=== PATIENT | male | born 1980 | race Hispanic/Latino ===

== ENCOUNTER 2019-10-12 07:29 | Inpatient (IN) | payer BC ==
[2019-10-12 08:08] LABS: Hemoglobin 17.5 g/dL (14.0-18.0); Mean Corpuscular HGB CONC 35.3 g/dL (32.0-36.0); Mean Corpuscular Hemoglobin 35.1 pg (27.0-31.0); Mean Corpuscular Volume 99.3 fL (78.0-98.0); Mean Platelet Volume 9.3 fL (7.4-10.4); Platelet Count 139 thou/uL (130-400); RBC Distribution Width 11.8 % (11.5-14.5); Red Blood Cell (RBC) Count 4.99 mill/uL (4.70-6.10); White Blood Cell (WBC) Count 15.1 thou/uL (4.8-10.8)
[2019-10-12 08:15] LABS: ALT (SGPT) 20 U/L (8-55); AST (SGOT) 15 U/L (5-34); Albumin 4.5 g/dL (3.5-5.0); Alkaline Phosphatase 145 U/L (40-110); BUN (Urea Nitrogen) 10 mg/dL (8.9-20.6); Bilirubin, Total 0.6 mg/dL (0.2-1.2); Calc. Creatinine Clearance 0 mL/min (70-130); Calcium 10.1 mg/dL (7.8-10.44); Chloride 102 mmol/L (98-107); Estimated GFR-MDRD 36; Globulin 4.6 g/dL (2.4-3.5); Glucose 440 mg/dL (70-105); Lipase 25 U/L (8-78); Potassium 4.6 mmol/L (3.5-5.1); Protein, Total 9.1 g/dL (6.0-8.3); Sodium 133 mmol/L (136-145)
[2019-10-12 08:18] LABS: Carbon Dioxide Less than 8 mmol/L (22-29)
[2019-10-12 08:24] LABS: Band 47 % (5-11); Lymphocytes 6 % (21-51); MDiff Complete? YES; Metamyelocyte 4 % (0-0); Monocytes 16 % (0-10); Myelocyte 1 % (0-0); Neutrophil 25 % (42-75); Platelet Morphology Comment Appears Adequate; RBC Morphology Normal; Reactive Lymphocytes 1 % (0-10); Reflex for Review?? YES; Vacuoles SLIGHT
--- NOTE | 2019-10-12 08:24 | RAD ---
XR Chest 1 View Portable HISTORY: Cough COMPARISON: None FINDINGS: The heart size is normal. The lungs are well expanded without focal areas of consolidation, pneumothorax or pleural effusions. IMPRESSION: No radiographic evidence of acute cardiopulmonary process.
[2019-10-12 09:10] LABS: Bacteria/HPF None Seen HPF (None Seen); Bilirubin Negative (Negative); Blood, Urine 2+ (Negative); Clarity Clear (Clear); Glucose, Urine (Dipstick) Greater than 1000 mg/dL (Negative); Leukocyte Negative Leu/uL (Negative); Nitrite Negative (Negative); Protein, Urine (Dipstick) 100 mg/dL (Neg-Trace); RBC/HPF 0-3 HPF (0-3); Squamous Epithelial 0-3 HPF (0-3); Urobilinogen Normal mg/dL (Less than 2); WBC/HPF 0-3 HPF (0-3)
[2019-10-12] MEDS ORDERED: Bisacodyl 10 MG SUPP PR PRN (09:44)
[2019-10-12] MEDS ORDERED: Ondansetron PF 4 MG/2 ML Vial IVP PRN (09:44)
[2019-10-12] MEDS ORDERED: CCU Electrolyte Replacement 1 EACH IVPB ONE (09:44)
[2019-10-12] MEDS ORDERED: Dextrose 5 %-0.45 % NaCl 1,000 ML IV PRN (09:44)
[2019-10-12] MEDS ORDERED: NS 0.9% w/ 20 MEQ KCL 1,000 ML IV PRN ×2 (09:44)
[2019-10-12] MEDS ORDERED: D5 1/2 NS w/20 mEq KCL 1,000 ML IV PRN (09:44)
[2019-10-12] MEDS ORDERED: Sodium Chloride 0.9% 1,000 ML IV PRN ×4 (09:44)
[2019-10-12] MEDS ORDERED: Senokot S 8.6-50 MG TAB PO PRN (09:44)
[2019-10-12] MEDS ORDERED: HUMULIN R 100 UNITS in Sodium Chloride 0.9% 100 ML IVPB SCH (10:19)
--- NOTE | 2019-10-12 10:56 | HP ---
REASON FOR ADMISSION: DKA, possible sepsis, influenza A. HISTORY OF PRESENTING ILLNESS: The patient gives history of not feeling well from last 2 days. He has been feeling very weak and developed abdominal discomfort which was generalized. He vomited once and had some small amount of blood in it. They had gone to walk-in [facility] yesterday and had a nasal smear for influenza done. They got the results this morning saying it was positive for influenza A. They have a prescription for Tamiflu. The patient and also mentions that they had been to [place] for the last [address] brother's place and he was not taking his metformin for 2 weeks. No complaints of cough or expectoration. No complaints of urinary burning, but has increased frequency of urination. On arrival, patient had a temperature of 94 and was placed on a Ida Hugger. His serum bicarb was less than 8. The patient has received a total of 2 L of fluid bolus in the ER. PAST MEDICAL AND SURGICAL HISTORY: Diabetes mellitus type 2. No prior surgical history. CURRENT MEDICATION: 1. Metformin 750 mg extended release daily. 2. Ozempic 0.25 mg once weekly shot for diabetes. ALLERGIES: NO KNOWN DRUG ALLERGIES. PERSONAL HISTORY: Drinks on the weekend, six cans a day. Does not abuse drugs. No smoking. 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 Lives with his . FAMILY HISTORY: Both parents are living. Father is healthy. Mother has history of diabetes. CODE STATUS: Full. Power of defense attorney is his . REVIEW OF SYSTEMS: CONSTITUTIONAL: Negative for weight loss or gain, ability to conduct usual activities. SKIN: Negative for rash, itching. EYES: Negative for double vision, pain. ENT/MOUTH: Negative for nose bleeding, neck stiffness, pain, tenderness. CARDIOVASCULAR: Negative for palpitations, dyspnea on exertion, orthopnea. RESPIRATORY: Negative for shortness of breath, wheezing, cough, hemoptysis, fever or night sweats. GASTROINTESTINAL: Negative for poor appetite, abdominal pain, heartburn, nausea , vomiting, constipation, or diarrhea. GENITOURINARY: Negative for urgency, frequency, dysuria, nocturia. MUSCULOSKELETAL: Negative for pain, swelling. NEUROLOGIC/PSYCHIATRIC: Negative for anxiety, depression. ALLERGY/IMMUNOLOGIC: Negative for skin rash, bleeding tendency. PHYSICAL EXAMINATION: GENERAL: The patient is a 39-year-old male who is currently lethargic, but is not in any acute distress. VITAL SIGNS: Blood pressure 170/88, pulse 112 per minute, respiratory rate 26 per minute, temperature 94 degrees Fahrenheit, saturating 100% on room air. NECK: Supple. No elevated JVD. HEENT: Eyes; extraocular muscles are intact. There is conjunctival erythema. No exudates. Oral cavity, mucous membranes are dry, no exudates seen. CARDIOVASCULAR: S1, S2 heard. Tachycardic. No murmur. RESPIRATORY: Air entry 1+ bilateral. No rales or rhonchi. ABDOMEN: Soft. Bowel sounds heard. No tenderness, rigidity, or guarding. EXTREMITIES: No peripheral edema or calf tenderness. VASCULAR: Peripheral pulses 1+ bilateral. No ischemic ulcerations or gangrene. CENTRAL NERVOUS SYSTEM: No gross focal deficits noted. The patient is lethargic, but oriented well. Moves all 4 extremities. PSYCHIATRIC: No obvious hallucinations or delusions. LABORATORY DATA: White count of 15, H and H 17 and 49, platelet count 139. 25% neutrophils, 47% bands, 16% monocytes, 4% metamyelocytes. Serum bicarb is less than 8. Potassium is 4.6, creatinine 2.0, BUN 10, serum glucose 440, alkaline phosphatase 145, total bilirubin 0.6, albumin is 4.5. Lipase is 25, beta hydroxybutyrate is 9.5. Chest x-ray done shows no acute cardiopulmonary abnormalities. CLINICAL IMPRESSION AND PLAN: The patient will be admitted to [facility] for diabetic ketoacidosis with him being noncompliant with medications for 2 weeks with history of diabetes mellitus type 2. The patient also has developed influenza A and likely has sepsis. He has obtained Tamiflu from Urgent Care yesterday and will continue the same twice daily at 75 mg. Blood and urine cultures have been obtained in the ER. We will empirically place him on Levaquin 500 mg IV daily due to severe bandemia. Also, the patient is getting his 3rd L bolus and we will follow DKA evidence based protocol. I have given complete updates to the patient and his at bedside. We will closely monitor him in IM. If needed, we will obtain a right upper quadrant ultrasound if the patient still has generalized abdominal pain. Currently, he does not have any specific localized pain in his abdomen. The patient also has acute kidney injury due to severe dehydration from DKA. Job ID: [id number] [facility]IATRIC CENTERAlexis
[2019-10-12 11:57] LABS: BUN (Urea Nitrogen) 9 mg/dL (8.9-20.6); Calc. Creatinine Clearance 0 mL/min (70-130); Calcium 8.3 mg/dL (7.8-10.44); Carbon Dioxide Less than 8 mmol/L (22-29); Chloride 108 mmol/L (98-107); Estimated GFR-MDRD 49; Glucose 373 mg/dL (70-105); Sodium 131 mmol/L (136-145)
[2019-10-12] MEDS ORDERED: Potassium Chloride 40 MEQ in Premix Bag 1 BAG IVPB PRN (12:07)
[2019-10-12] MEDS ORDERED: Magnesium 2 GM/50 ML 2 GM in Premix Bag 1 BAG IVPB PRN (12:07)
[2019-10-12] MEDS ORDERED: CCU ELECTROLYTE REPLACEMENT PROTOCOL FS PRN (12:07)
[2019-10-12] MEDS ORDERED: Potassium Phosphate 9 MMOL in Sodium Chloride 0.9% 100 ML IVPB PRN (12:07)
[2019-10-12] MEDS ORDERED: Potassium Phosphate 12 MMOL in Sodium Chloride 0.9% 250 ML 250 ML IV PRN (12:07)
[2019-10-12] MEDS ORDERED: PHOS-NAK 1 PKT PACK PO PRN ×2 (12:07)
[2019-10-12] MEDS ORDERED: Magnesium Oxide 400 MG TAB PO PRN ×2 (12:07)
[2019-10-12] MEDS ORDERED: Potassium Chloride 20 MEQ TAB PO PRN (12:07)
[2019-10-12] MEDS ORDERED: Potassium Phosphate 15 MMOL in Sodium Chloride 0.9% 250 ML 250 ML IV PRN (12:07)
[2019-10-12] MEDS ORDERED: Potassium Chloride 40 MEQ in Sodium Chloride 0.9% 250 ML 250 ML IVPB PRN (12:07)
[2019-10-12 14:26] LABS: BUN (Urea Nitrogen) 9 mg/dL (8.9-20.6); Calc. Creatinine Clearance 0 mL/min (70-130); Calcium 8.5 mg/dL (7.8-10.44); Chloride 112 mmol/L (98-107); Estimated GFR-MDRD 56; Glucose 317 mg/dL (70-105); Potassium 4.5 mmol/L (3.5-5.1); Sodium 132 mmol/L (136-145)
[2019-10-12 14:37] LABS: Carbon Dioxide Less than 8 mmol/L (22-29)
[2019-10-12 17:39] VITALS: BMI 25.0
[2019-10-12 18:41] LABS: BUN (Urea Nitrogen) 8 mg/dL (8.9-20.6); Calc. Creatinine Clearance 74 mL/min (70-130); Calcium 8.7 mg/dL (7.8-10.44); Chloride 114 mmol/L (98-107); Estimated GFR-MDRD 63; Glucose 244 mg/dL (70-105); Potassium 3.6 mmol/L (3.5-5.1); Sodium 133 mmol/L (136-145)
[2019-10-12 18:45] LABS: Carbon Dioxide Less than 8 mmol/L (22-29)
[2019-10-12 19:29] LABS: Lactic Acid 1.1 mmol/L (0.5-2.2)
[2019-10-12 19:55] LABS: Actual Bicarbonate (HCO3v) 7 mEq/L (22-28); Base Excess -18.7 mEq/L (-2.0 to +3.0); Calcium, Ionized 1.31 mmol/L (1.16-1.32); Chloride (ABG LAB) 109 mmol/L (98-106); Potassium - ABG Lab 3.08 mmol/L (3.70-5.30); Sodium 132.3 mmol/L (133-146)
[2019-10-12 20:12] LABS: pH (venous) 7.21 (7.32-7.43)
[2019-10-12 20:28] LABS: Magnesium 1.4 mg/dL (1.6-2.6); Phosphorus Less than 1.0 mg/dL (2.3-4.7)
[2019-10-12] MEDS ORDERED: Potassium Phosphate 30 MMOL in Sodium Chloride 0.9% 500 ML IVPB SCH (21:00)
[2019-10-12] MEDS ORDERED: Magnesium Sulfate 4 GM in Sodium Chloride 0.9% 250 ML 250 ML IVPB SCH (21:00)
[2019-10-12] MEDS: Oseltamivir 75 MG CAP PO SCH (21:26)
[2019-10-12] MEDS: Sodium Bicarbonate 150 MEQ in Dextrose 5% in Water 1,000 ML IV SCH (21:31)
[2019-10-12] MEDS: Acetaminophen 325 MG TAB PO PRN (21:38)
[2019-10-12] MEDS: Famotidine 20 MG TAB PO SCH (21:38)
[2019-10-12] MEDS: HUMULIN R 100 UNITS in Sodium Chloride 0.9% 100 ML IVPB SCH (23:02)
[2019-10-13] MEDS: Sodium Bicarbonate 150 MEQ in Dextrose 5% in Water 1,000 ML IV SCH (02:57)
[2019-10-13] MEDS: Acetaminophen 325 MG TAB PO PRN (02:57)
[2019-10-13 03:45] LABS: Hemoglobin A1c Greater than 14.0 % (4.0-6.0)
[2019-10-13 04:02] LABS: Anion Gap 11 mmol/L (10-20); BUN (Urea Nitrogen) 5 mg/dL (8.9-20.6); Calc. Creatinine Clearance 114 mL/min (70-130); Calcium 8.2 mg/dL (7.8-10.44); Carbon Dioxide 14 mmol/L (22-29); Chloride 107 mmol/L (98-107); Estimated GFR-MDRD Greater than 90; Glucose 194 mg/dL (70-105); Magnesium 1.9 mg/dL (1.6-2.6); Sodium 130 mmol/L (136-145)
[2019-10-13 04:08] LABS: Potassium 2.3 mmol/L (3.5-5.1)
[2019-10-13 04:12] LABS: Phosphorus Less than 1.0 mg/dL (2.3-4.7)
[2019-10-13] MEDS: Potassium Chloride 20 MEQ in Premix Bag 1 BAG IVPB SCH ×2 (04:43→08:39)
[2019-10-13 04:48] LABS: Band 48 % (5-11); Dohle Bodies SLIGHT; Hemoglobin 14.9 g/dL (14.0-18.0); Lymphocytes 12 % (21-51); MDiff Complete? YES; Mean Corpuscular HGB CONC 35.3 g/dL (32.0-36.0); Mean Corpuscular Hemoglobin 33.2 pg (27.0-31.0); Mean Platelet Volume 8.1 fL (7.4-10.4); Metamyelocyte 3 % (0-0); Monocytes 11 % (0-10); Neutrophil 26 % (42-75); Platelet Count 103 thou/uL (130-400); Platelet Morphology Comment Appears Decreased; RBC Distribution Width 11.7 % (11.5-14.5); Red Blood Cell (RBC) Count 4.48 mill/uL (4.70-6.10); Toxic Granulation SLIGHT; White Blood Cell (WBC) Count 5.1 thou/uL (4.8-10.8)
[2019-10-13] MEDS ORDERED: Sodium Phosphate 30 MMOL in Sodium Chloride 0.9% 250 ML 250 ML IVPB SCH (05:00)
[2019-10-13] MEDS ORDERED: Potassium Chloride 20 MEQ TAB PO SCH (05:00)
[2019-10-13] MEDS: HUMULIN R 100 UNITS in Sodium Chloride 0.9% 100 ML IVPB SCH (05:23)
[2019-10-13 08:35] LABS: Base Excess-Venous Less than -30.0 mmol/L (-2.0 to 3.0); Bicarbonate (HCO3v) 4.4 mmol/L (22.0-28.0); CO2 Tension (PvCO2) 29.2 mmHg (40.0-50.0); Hemoglobin - Calc 18.1 g/dL (14.0-18.0); Potassium 5.2 mmol/L (3.5-5.1); Sodium 133 mmol/L (138-145); vO2 Saturation-calc 26.2 % (60.0-85.0)
[2019-10-13 08:36] LABS: Calcium, Ionized 1.22 mmol/L (See Comments:); Chloride 115 mmol/L (98-107); T. Carbon Dioxide 5.3 mmol/L (22.0-28.0)
[2019-10-13] MEDS ORDERED: Insulin Glargine 10 UNITS in Pre-Filled Syringe 1 EACH SC SCH (08:45)
[2019-10-13] MEDS ORDERED: Sodium Bicarbonate 150 MEQ in Dextrose 5% in Water 1,000 ML IV SCH (08:47)
[2019-10-13] MEDS ORDERED: FLU VACC QS2019-20(6MOS UP)/PF 60 MCG/0.5 ML SYRINGE IM ONE (09:00)
[2019-10-13] MEDS ORDERED: Dextrose 5% in Water 1,000 ML IV PRN (09:10)
[2019-10-13] MEDS ORDERED: Dextrose 50% Abboject 50 ML SYRINGE SLOW IVP PRN (09:10)
[2019-10-13] MEDS ORDERED: HumaLOG 300 UNITS/3 ML VIAL SC PRN (09:10)
[2019-10-13] MEDS: Enoxaparin Sodium 40 MG/0.4 ML SYRINGE SC SCH (10:03)
[2019-10-13] MEDS: guaiFENesin ER 600 MG TAB PO SCH ×2 (10:04→21:06)
[2019-10-13] MEDS: Potassium Chloride 20 MEQ TAB PO SCH ×6 (10:04→23:59)
[2019-10-13] MEDS: Famotidine 20 MG TAB PO SCH ×2 (10:04→21:06)
[2019-10-13] MEDS: Oseltamivir 75 MG CAP PO SCH ×2 (10:04→21:07)
--- NOTE | 2019-10-13 12:02 | PDOC.HOSPP ---
- Subjective Encounter Date: 10/13/19 Encounter Time: 08:45 Subjective: awake, has a bit of hoarseness at bedside feels better than yesterday is passing urine - Objective Vital Signs & Weight: Vital Signs (12 hours) Temp 10/13/19 10:29 99.5 F 10/13/19 07:31 98.1 F 10/13/19 03:29 99.2 F Weight Weight 146 lb Most Recent Monitor Data Heart Rate from ECG 106 NIBP 99/66 NIBP BP-Mean 77 Respiration from ECG 24 SpO2 96 I&O: 10/12/19 10/13/19 10/14/19 06:59 06:59 06:59 Intake Total 3796.2 Output Total 2400 Balance 1396.2 Result Diagrams: 10/13/19 03:28 10/13/19 03:28 Additional Labs: Accuchecks 10/13/19 10/13/19 10/13/19 10:59 10:04 08:57 POC Glucose 159 H 130 H 117 H 10/13/19 10/13/19 10/13/19 08:05 06:58 06:07 POC Glucose 140 H 132 H 152 H 10/13/19 10/13/19 10/13/19 05:03 03:59 03:02 POC Glucose 162 H 206 H 197 H 10/13/19 10/13/19 10/12/19 02:01 01:11 23:59 POC Glucose 208 H 230 H 208 H 10/12/19 10/12/19 10/12/19 23:00 21:56 21:07 POC Glucose 221 H 234 H 251 H 10/12/19 10/12/19 10/12/19 19:51 19:11 18:02 POC Glucose 246 H 242 H 282 H 10/12/19 10/12/19 10/12/19 17:10 16:40 15:43 POC Glucose 199 H 226 H 253 H 10/12/19 10/12/19 14:38 13:33 POC Glucose 396 H 316 H Hospitalist ROS - Medication Medications: Active Medications Generic Name Dose Route Start Last Admin Trade Name Freq PRN Reason Stop Dose Admin Acetaminophen 650 mg 10/12/19 09:44 10/13/19 02:57 Tylenol PO 650 mg Q4H PRN Administration Headache/Fever/Mild Pain (1-3) Enoxaparin Sodium 40 mg 10/13/19 09:00 10/13/19 10:03 Lovenox SC 40 mg 0900 CHARLY Administration Famotidine 20 mg 10/12/19 21:00 10/13/19 10:04 Pepcid PO 20 mg BID CHARLY Administration Guaifenesin 600 mg 10/13/19 09:00 10/13/19 10:04 Mucinex PO 600 mg Q12HR CHARLY Administration Levofloxacin 500 mg/ Device 100 mls @ 100 mls/hr 10/12/19 13:00 10/12/19 17: 55 IVPB Not Given 1300 CHARLY Oseltamivir Phosphate 75 mg 10/12/19 21:00 10/13/19 10:04 Tamiflu PO 10/17/19 09:01 75 mg BID CHARLY Administration Potassium Chloride 40 meq 10/13/19 09:00 10/13/19 10:04 K-Dur PO 10/13/19 15:01 40 meq Q3HR CHARLY Administration - Exam General Appearance: awake alert Eye: anicteric sclera ENT - other findings: ?thrush over tongue and palate Neck: supple, no JVD Heart: RRR, no murmur Respiratory: no wheezes, no rales Gastrointestinal: soft, non-tender, non-distended, normal bowel sounds Extremities: no cyanosis, no edema Neurological: cranial nerve grossly intact, no focal deficits Psychiatric: normal affect, A&O x 3 Hosp A/P (1) DKA, type 2 Code(s): E11.10 - TYPE 2 DIABETES MELLITUS WITH KETOACIDOSIS WITHOUT COMA Status: Resolved Qualifiers: Diabetes mellitus intermodal dispatcher insulin use: without fpc use (2) Severe dehydration Code(s): E86.0 - DEHYDRATION Status: Acute (3) CHANO (acute kidney injury) Code(s): N17.9 - ACUTE KIDNEY FAILURE, UNSPECIFIED Status: Acute (4) Sepsis Code(s): A41.9 - SEPSIS, UNSPECIFIED ORGANISM Status: Suspected Qualifiers: Sepsis type: sepsis due to unspecified organism (5) Influenza A Code(s): J10.1 - FLU DUE TO OTH IDENT INFLUENZA VIRUS W OTH RESP MANIFEST Status: Acute - Plan continue iv hydration with lactated ringers on lantus 10u bid may tx to med floor renal function and serum bicarb are slowly trending down towards baseline to mobilize as tolerated nystatin swish and swallow for oral thrush will get HIV and hep panel as well hemostable metformin will be added when hco3 levels return to baseline
[2019-10-13 12:09] LABS: Phosphorus 1.4 mg/dL (2.3-4.7)
[2019-10-13] MEDS: Nystatin 500,000 UNITS/5 ML UDCUP SSW SCH ×3 (12:30→21:08)
--- NOTE | 2019-10-13 12:52 | CON ---
DATE OF CONSULTATION: 10/12/2019 SERVICE: Nephrology. REASON FOR CONSULTATION: Acute kidney injury and electrolyte derangements. REQUESTING PHYSICIAN: Dr. Crenshaw. HISTORY OF PRESENT ILLNESS: A 39-year-old male with past medical history significant for type 2 diabetes, on Ozempic and metformin, admitted with ill feeling associated with generalized weakness and abdominal discomfort as well as nausea and vomiting since about 2-3 days prior to presentation. The patient was found to have influenza infection and was subsequently referred to the hospital. On evaluation, he was found to have DKA with high anion gap metabolic acidosis as well as acute kidney injury necessitating Nephrology consult. The patient was found to have hypotension and tachycardia and was treated with IV fluid with improvement and was subsequently admitted to [facility] for further evaluation and treatment. He admitted to polyuria and urinary frequency, but denied dysuria or hematuria. He also admitted to cough. He denied diarrhea, hematochezia, or hematemesis. PAST MEDICAL HISTORY: Diabetes. PAST SURGICAL HISTORY: None. PRIOR TO HOSPITAL MEDICATIONS: 1. Metformin 750 mg extended release daily. 2. Ozempic 0.25 mg once weekly. ALLERGIES: NO KNOWN DRUG ALLERGY REPORTED. FAMILY HISTORY: Significant for diabetes in mother side of the family. Father is healthy. SOCIAL HISTORY: Drinks alcohol occasionally up to 6 cans per day. Denies smoking or recreational drug use. 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 REVIEW OF SYSTEMS: A 12-point review of system performed was negative other than pertinent positives and negatives included in the history of present illness. PHYSICAL EXAMINATION: VITAL SIGNS: Temperature 100.4, pulse 126, respiratory rate 28, SpO2 of 97% on room air. GENERAL: Young male, in no obvious distress. Afebrile, anicteric, acyanotic. The patient is, however, acutely ill-looking. HEENT: Normocephalic, atraumatic. Oral mucosa is dry. NECK: Supple with no JVD. CARDIOVASCULAR: Regular rhythm and rate, but tachycardic. RESPIRATORY: Fair air entry bilaterally with scattered transmitted breath sounds. No obvious rhonchi or crackle was appreciated. The patient is tachypneic. GI: Full, soft, nontender, nondistended with normal bowel sounds. EXTREMITIES: Grossly normal looking, atraumatic, with no edema or erythema. LADLE FILLER: Conscious and alert and oriented x3 with appropriate mental status. Cranial nerves 2 through 12 are grossly intact. DIAGNOSTIC DATA: CBC showed WBC count of 15.1, hemoglobin of 17.5, MCV of 99.3, platelets of 139. Venous blood gas performed earlier on showed pH of 6.7. Initial chemistry showed sodium 133, potassium 4.6, chloride 102, CO2 less than 8, BUN 10, creatinine 2.06, glucose 440, calcium 10.1, total bilirubin 0.6, AST 15, ALT 20, alkaline phosphatase 145, total protein 9.1, albumin 4.5, globulin 4.6. Repeat BMP at about 11 a.m. showed sodium 131, potassium 5.0, chloride 108, CO2 less than 8, BUN 1.59, glucose 373. IMAGING STUDIES: Chest x-ray on presentation showed no radiographic evidence of acute cardiopulmonary process. ASSESSMENT: 1. Acute kidney injury: Due to hemodynamic factors related to volume depletion from polyuria due to uncontrolled diabetes as well as cytokine-mediated injury. 2. High anion gap metabolic acidosis. 3. Hyperkalemia. 4. Hypokalemia. 5. Sepsis: Due to influenza infection with possible secondary bacterial infection. 6. Volume depletion with hemoconcentration. 7. Hypotension. 8. Uncontrolled diabetes mellitus with diabetic ketoacidosis. 9. Influenza infection. PLAN: 1. We will discontinue normal saline and start the patient on bicarb infusion given severe metabolic acidosis. Venous blood gas was 6.8 on presentation. 2. Agree with insulin infusion. 3. We will get serum magnesium and phosphorus and replete both if indicated. 4. We will replete serum potassium with potassium chloride. 5. IV fluid therapy volume contraction with hemoconcentration. 6. Other treatment as per primary attending. 7. We will monitor electrolytes regularly and replete as indicated. Further treatment as per primary attending. Job ID: [id number]
[2019-10-13] MEDS ORDERED: Potassium Phosphate 30 MMOL in Sodium Chloride 0.9% 500 ML IVPB SCH (14:45)
[2019-10-13] MEDS: Lactated Ringer's 1,000 ML IV SCH ×3 (15:20→23:59)
[2019-10-13 15:44] LABS: Albumin 2.7 g/dL (3.5-5.0); Anion Gap 18 mmol/L (10-20); BUN (Urea Nitrogen) 6 mg/dL (8.9-20.6); BUN/Creatinine Ratio 6.52; Calc. Creatinine Clearance 102 mL/min (70-130); Calcium 7.8 mg/dL (7.8-10.44); Carbon Dioxide 18 mmol/L (22-29); Chloride 96 mmol/L (98-107); Estimated GFR-MDRD Greater than 90; Glucose 348 mg/dL (70-105); Sodium 129 mmol/L (136-145)
[2019-10-13 15:48] LABS: Phosphorus 1.3 mg/dL (2.3-4.7); Potassium 2.9 mmol/L (3.5-5.1)
--- NOTE | 2019-10-13 16:23 | PRG ---
DATE OF SERVICE: 10/13/2019 SERVICE: Nephrology. SUBJECTIVE: A 39-year-old male with type 2 diabetes, admitted due to DKA from influenza infection associated with sepsis. Nephrology is following the patient for acute kidney injury, volume depletion, and multiple electrolyte derangements. The patient is still coughing, but reports feeling better. Denied nausea, vomiting, or diarrhea illness. Also, denied hematuria. Complains of hunger. OBJECTIVE: VITAL SIGNS: Temperature 99.5, pulse 120, respiratory rate is 26, SpO2 of 95% on room air, and blood pressure is 108/72. GENERAL: Acutely ill-looking young male. Afebrile, anicteric, acyanotic. HEENT: Normocephalic and atraumatic. Oral mucosa is mildly dry. NECK: Supple with no JVD. CARDIOVASCULAR: Regular rhythm and rate, but tachycardic. RESPIRATORY: Fair air entry bilaterally with some transmitted breath sounds. No obvious rhonchi were appreciated. GI: Full, soft, nontender, nondistended with normal bowel sounds. EXTREMITIES: Grossly normal looking, but dry. No erythema appreciated. ASSET MANAGEMENT COORDINATOR: Conscious, alert, oriented x3 with appropriate mental status. Cranial nerves 2 through 12 are grossly intact. DIAGNOSTIC DATA: CBC showed WBC count of 5.1, hemoglobin of 14.9, MCV of 94.0, and platelets of 103. CMP earlier today showed sodium 130, potassium 2.3, chloride 107, CO2 of 14, BUN 5, creatinine 0.82, glucose 192, and calcium 8.2. Magnesium is 1.9. Phosphorus is less than 1.0. ASSESSMENT: 1. Acute kidney injury: Due to hemodynamic factors related to volume depletion with hypotension. Creatinine has improved with aggressive IV fluid therapy. 2. due to metabolic acidosis. 3. Poorly controlled diabetes with diabetic ketoacidosis. 4. Hypophosphatemia. 5. Hypomagnesemia. 6. Influenza infection with sepsis. 7. Volume depletion with hemoconcentration. 8. Hyponatremia: Due to volume contraction with appropriate ADH secretion. PLAN: 1. We will continue bicarbonate infusion for four more hours. We will transition to lactated Ringer's at 250 mL as the patient is clinically dry still. 2. We will replete serum potassium with potassium chloride 120 mEq and will recheck. 3. We will also replete serum phosphate with potassium phosphate. 4. We will also monitor magnesium and replete as indicated. 5. Insulin therapy as per primary attending. 6. [place] oral intake. 7. Further treatment to follow depending on hospital course. Job ID: [id number]
[2019-10-13] MEDS: HumaLOG 300 UNITS/3 ML VIAL SC PRN (18:10)
[2019-10-13] MEDS: Insulin Glargine 10 UNITS in Pre-Filled Syringe 1 EACH SC SCH (21:07)
[2019-10-13] MEDS: Guaifenesin DM 100-10/5 ML UDCUP PO PRN (23:59)
[2019-10-14] MEDS: Acetaminophen 325 MG TAB PO PRN (01:10)
[2019-10-14] MEDS: Lactated Ringer's 1,000 ML IV SCH ×2 (03:56→08:36)
[2019-10-14] MEDS: Guaifenesin DM 100-10/5 ML UDCUP PO PRN ×4 (03:59→21:11)
[2019-10-14] MEDS: HumaLOG 300 UNITS/3 ML VIAL SC PRN ×3 (05:33→17:03)
--- NOTE | 2019-10-14 08:07 | RAD ---
Portable frontal chest radiograph: 10/14/2019 COMPARISON: 10/12/2019 HISTORY: Evaluate pulmonary parenchymal infiltrate FINDINGS: Nonspecific mild hazy increased linear densities are noted within both lung bases, new when compared to the prior exam. No pneumothorax, lobar consolidation, or alveolar edema. No evidence for significant pleural effusion. IMPRESSION: New hazy increased density in both lung bases. Findings may be on the basis of volume los s or basilar infectious pneumonitis. Follow-up PA and lateral imaging of the chest following treatment advised.
[2019-10-14 08:10] LABS: Hemoglobin 13.4 g/dL (14.0-18.0); Mean Corpuscular HGB CONC 35.8 g/dL (32.0-36.0); Mean Corpuscular Hemoglobin 34.1 pg (27.0-31.0); Mean Corpuscular Volume 95.2 fL (78.0-98.0); Mean Platelet Volume 8.2 fL (7.4-10.4); Platelet Count 121 thou/uL (130-400); RBC Distribution Width 11.7 % (11.5-14.5); Red Blood Cell (RBC) Count 3.92 mill/uL (4.70-6.10); White Blood Cell (WBC) Count 9.1 thou/uL (4.8-10.8)
[2019-10-14 08:25] LABS: Albumin 2.5 g/dL (3.5-5.0); Anion Gap 15 mmol/L (10-20); BUN (Urea Nitrogen) 7 mg/dL (8.9-20.6); BUN/Creatinine Ratio 10.94; Calc. Creatinine Clearance 147 mL/min (70-130); Calcium 8.2 mg/dL (7.8-10.44); Carbon Dioxide 18 mmol/L (22-29); Chloride 107 mmol/L (98-107); Estimated GFR-MDRD Greater than 90; Glucose 219 mg/dL (70-105); Magnesium 1.8 mg/dL (1.6-2.6); Potassium 3.6 mmol/L (3.5-5.1); Sodium 136 mmol/L (136-145)
[2019-10-14 08:36] LABS: Phosphorus 1.2 mg/dL (2.3-4.7)
[2019-10-14] MEDS: glipiZIDE 5 MG TAB PO SCH ×2 (08:40→17:02)
[2019-10-14] MEDS: Nystatin 500,000 UNITS/5 ML UDCUP SSW SCH ×4 (08:40→21:11)
[2019-10-14] MEDS: Insulin Glargine 10 UNITS in Pre-Filled Syringe 1 EACH SC SCH ×2 (08:41→21:11)
[2019-10-14] MEDS: Enoxaparin Sodium 40 MG/0.4 ML SYRINGE SC SCH (08:41)
[2019-10-14] MEDS: Famotidine 20 MG TAB PO SCH ×2 (08:41→21:11)
[2019-10-14] MEDS: metFORMIN 500 MG TAB PO SCH ×2 (08:41→17:02)
[2019-10-14] MEDS: guaiFENesin ER 600 MG TAB PO SCH ×2 (08:41→21:11)
[2019-10-14] MEDS: Oseltamivir 75 MG CAP PO SCH ×2 (08:41→21:12)
[2019-10-14] MEDS ORDERED: Potassium Phosphate 30 MMOL in Sodium Chloride 0.9% 500 ML IVPB SCH (09:30)
--- NOTE | 2019-10-14 09:58 | PRG ---
DATE OF SERVICE: 10/14/2019 SERVICE: Nephrology. SUBJECTIVE: A 39-year-old male being followed up for acute kidney injury and multiple electrolyte derangements. The patient was admitted due to diabetic ketoacidosis and sepsis. Reports feeling better. Nausea and vomiting have subsided. Oral intake is improving. Denied chest pain or shortness of breath. Still have some cough. OBJECTIVE: VITAL SIGNS: Temperature 98, pulse 93, respiratory rate 18, SpO2 of 98% on room air, blood pressure is 96/67. GENERAL: Young male, in no distress. Afebrile. Anicteric. Acyanotic. HEENT: Normocephalic, atraumatic. Oral mucosa is moist. NECK: Supple with no JVD. CARDIOVASCULAR: Regular rhythm and rate with normal heart sounds 1 and 2. RESPIRATORY: Fair air entry bilaterally with few transmitted breath sounds. No obvious crackle or rhonchi or use of accessory muscles appreciated. GI: Full, soft, nontender, nondistended with normal bowel sounds. EXTREMITIES: Grossly normal looking atraumatic with no obvious edema or erythema. DIAGNOSTIC DATA: CBC showed WBC count of 9.1, hemoglobin of 13.4, platelets of 121. Chemistry showed sodium 136, potassium 3.6, chloride 107, CO2 of 18, anion gap 16, BUN 7, creatinine 0.64, glucose 219, calcium 8.2, phosphorus 1.2, magnesium 1.8, albumin 2.5. ASSESSMENT: 1. Acute kidney injury due to hemodynamic factors related to hypotension and volume depletion as well as cytokine-mediated injury. Resolved. Creatinine is 0.64 today from peak of 2.06 on admission. 2. Hypokalemia: Repleted. 3. Hypophosphatemia: Persistent. 4. Hypomagnesemia: Repleted. 5. Hyponatremia: Due to volume depletion with appropriate antidiuretic hormone secretion. Resolved with aggressive IV fluid therapy. 6. Volume contraction with hemoconcentration. 7. Influenza infection with sepsis. 8. Type 2 diabetes with diabetic ketoacidosis. 9. Uncontrolled type 2 diabetes with hemoglobin A1c of 14. PLAN: 1. We will discontinue IV fluid therapy and aggressive oral intake advised. 2. We will replete serum phosphorus with K-Phos 30 mmol. 3. We will also monitor other electrolytes and replete as indicated. 4. Increase activity. 5. We will repeat renal function tests and electrolytes in the morning. Further treatment to follow depending on hospital course. With resolution of acute kidney injury and correction of almost all electrolyte derangements, the patient can be discharged from Nephrology point of view if deemed appropriate by the primary attending. Job ID: [id number]
--- NOTE | 2019-10-14 13:45 | PDOC.HOSPP ---
- Subjective Encounter Date: 10/14/19 Encounter Time: 08:00 Subjective: awake, oriented well, mild sob and dry cough is amb in room at bedside no nausea or abd pain - Objective Vital Signs & Weight: Vital Signs (12 hours) Temp Pulse Resp BP Pulse Ox 10/14/19 11:21 98.5 F 88 18 95/62 96 10/14/19 07:10 98 F 93 18 96/67 98 10/14/19 04:11 98.4 F 94 16 93/63 95 10/14/19 03:18 98.1 F Weight Weight 146 lb Most Recent Monitor Data Heart Rate from ECG 122 NIBP 97/62 NIBP BP-Mean 73 Respiration from ECG 17 SpO2 95 I&O: 10/13/19 10/14/19 10/15/19 06:59 06:59 06:59 Intake Total 3796.2 Output Total 2400 Balance 1396.2 Result Diagrams: 10/14/19 07:40 10/14/19 07:39 Additional Labs: Accuchecks 10/14/19 10/14/19 10/13/19 11:24 04:17 19:17 POC Glucose 201 H 235 H 297 H 10/13/19 16:42 POC Glucose 301 H Hospitalist ROS - Medication Medications: Active Medications Generic Name Dose Route Start Last Admin Trade Name Freq PRN Reason Stop Dose Admin Acetaminophen 650 mg 10/12/19 09:44 10/14/19 01:10 Tylenol PO 650 mg Q4H PRN Administration Headache/Fever/Mild Pain (1-3) Enoxaparin Sodium 40 mg 10/13/19 09:00 10/14/19 08:41 Lovenox SC 40 mg 0900 CHARLY Administration Famotidine 20 mg 10/12/19 21:00 10/14/19 08:41 Pepcid PO 20 mg BID CHARLY Administration Glipizide 5 mg 10/14/19 07:30 10/14/19 08:40 Glucotrol PO 5 mg BID-AC CHARLY Administration Guaifenesin 600 mg 10/13/19 09:00 10/14/19 08:41 Mucinex PO 600 mg Q12HR CHARLY Administration Guaifenesin/Dextromethorphan 15 ml 10/12/19 09:44 10/14/19 10:41 Robitussin Dm PO 15 ml Q4H PRN Administration Cough Levofloxacin 500 mg/ Device 100 mls @ 100 mls/hr 10/12/19 13:00 10/14/19 12: 30 IVPB 100 mls 1300 CHARLY Administration Insulin Glargine 10 units/ 0.1 mls @ 0 mls/hr 10/13/19 21:00 10/14/19 08:41 Miscellaneous Medication SC 0.1 mls BID CHARLY Administration Insulin Human Lispro 0 units 10/13/19 09:10 10/14/19 12:35 Humalog SC 6 unit .AGGRESSIVE SLIDING PRN Administration Aggressive Correctional Scale Insulin Human Lispro 0 units 10/13/19 09:10 10/13/19 21:08 Humalog SC 3 units .BEDTIME SLIDING SC PRN Administration Bedtime Correctional Scale Metformin HCl 500 mg 10/14/19 08:00 10/14/19 08:41 Glucophage PO 500 mg BID-WM CHARLY Administration Nystatin 500,000 units 10/13/19 13:00 10/14/19 13:20 Mycostatin SSW Not Given QID CHARLY Oseltamivir Phosphate 75 mg 10/12/19 21:00 10/14/19 08:41 Tamiflu PO 10/17/19 09:01 75 mg BID CHARLY Administration - Exam General Appearance: awake alert Eye: anicteric sclera ENT: no oropharyngeal lesions, moist mucosa Neck: supple, no JVD Heart: RRR, no murmur Respiratory: no wheezes, no rales, rhonchi Gastrointestinal: soft, non-tender, non-distended, normal bowel sounds Extremities: no cyanosis, no edema Neurological: cranial nerve grossly intact, no focal deficits Psychiatric: normal affect, A&O x 3 Hosp A/P (1) DKA, type 2 Code(s): E11.10 - TYPE 2 DIABETES MELLITUS WITH KETOACIDOSIS WITHOUT COMA Status: Resolved Qualifiers: Diabetes mellitus intermediate manager insulin use: without assisted use (2) Severe dehydration Code(s): E86.0 - DEHYDRATION Status: Resolved (3) CHANO (acute kidney injury) Code(s): N17.9 - ACUTE KIDNEY FAILURE, UNSPECIFIED Status: Resolved (4) Sepsis Code(s): A41.9 - SEPSIS, UNSPECIFIED ORGANISM Status: Suspected Qualifiers: Sepsis type: sepsis due to unspecified organism (5) Influenza A Code(s): J10.1 - FLU DUE TO OTH IDENT INFLUENZA VIRUS W OTH RESP MANIFEST Status: Acute - Plan on lantus 10u bid, will add glipizide and low dose metformin, plan is to remove lantus in am. serum bicarb is slowly trending down towards baseline to mobilize as tolerated nystatin swish and swallow for oral thrush will get HIV and hep panel as well hemostable
[2019-10-14] MEDS ORDERED: Clopidogrel Bisulfate 75 MG TAB ONE (15:14)
[2019-10-14 16:22] LABS: HBCM Index 0.05 S/CO (0-0.79); HIV (1/2) Antibody/Antigen Non-Reactive (NonReactive); Hep A IgM AB Non-Reactive (NonReactive); Hep A IgM S/CO 0.13 S/CO (0-0.79); Hep B Surf Ag Non-Reactive S/CO (NonReactive); Hep C IgG Ab Non-Reactive (NonReactive); Hep C Index 0.04 S/CO (0-0.79); Hepatitis B Core IgM Abs Non-Reactive (NonReactive)
[2019-10-15] MEDS: HumaLOG 300 UNITS/3 ML VIAL SC PRN ×2 (06:08→12:43)
[2019-10-15 07:11] LABS: Albumin 2.5 g/dL (3.5-5.0); Anion Gap 12 mmol/L (10-20); BUN (Urea Nitrogen) 6 mg/dL (8.9-20.6); Calc. Creatinine Clearance 136 mL/min (70-130); Calcium 8.1 mg/dL (7.8-10.44); Carbon Dioxide 25 mmol/L (22-29); Chloride 105 mmol/L (98-107); Estimated GFR-MDRD Greater than 90; Glucose 237 mg/dL (70-105); Phosphorus 3.1 mg/dL (2.3-4.7); Potassium 3.4 mmol/L (3.5-5.1); Sodium 139 mmol/L (136-145)
[2019-10-15] MEDS: metFORMIN 500 MG TAB PO SCH (08:07)
[2019-10-15] MEDS: Oseltamivir 75 MG CAP PO SCH (08:07)
[2019-10-15] MEDS: Enoxaparin Sodium 40 MG/0.4 ML SYRINGE SC SCH (08:07)
[2019-10-15] MEDS: glipiZIDE 5 MG TAB PO SCH (08:07)
[2019-10-15] MEDS: guaiFENesin ER 600 MG TAB PO SCH (08:07)
[2019-10-15] MEDS: Famotidine 20 MG TAB PO SCH (08:07)
[2019-10-15] MEDS: Guaifenesin DM 100-10/5 ML UDCUP PO PRN ×2 (08:08→12:43)
[2019-10-15] MEDS: Nystatin 500,000 UNITS/5 ML UDCUP SSW SCH ×2 (08:08→12:43)
[2019-10-15] MEDS: Insulin Glargine 10 UNITS in Pre-Filled Syringe 1 EACH SC SCH (08:12)
[2019-10-15 11:31] VITALS: BP 111/76; TEMP 98.2
--- NOTE | 2019-10-15 14:30 | PDOC.HOSPP ---
- Subjective Encounter Date: 10/15/19 Encounter Time: 14:28 Subjective: Mr. Lozano was seen today in follow-up of DKA. He does not have any new complaints. He says the abdominal pain has improved. - Objective Vital Signs & Weight: Vital Signs (12 hours) Temp Pulse Resp BP Pulse Ox 10/15/19 11:28 98.2 F 80 16 111/76 98 10/15/19 11:24 98.4 F 84 18 113/78 94 L 10/15/19 07:34 98.4 F 80 16 95/66 98 10/15/19 04:18 98.4 F 94 19 91/61 95 Weight Weight 146 lb Most Recent Monitor Data Heart Rate from ECG 122 NIBP 97/62 NIBP BP-Mean 73 Respiration from ECG 17 SpO2 95 I&O: 10/14/19 10/15/19 10/16/19 06:59 06:59 06:59 Intake Total 480 Balance 480 Result Diagrams: 10/14/19 07:40 10/15/19 06:14 Additional Labs: Accuchecks 10/15/19 10/15/19 10/14/19 11:34 04:24 19:28 POC Glucose 161 H 250 H 239 H 10/14/19 16:58 POC Glucose 211 H Hospitalist ROS - Medication Medications: Active Medications Generic Name Dose Route Start Last Admin Trade Name Freq PRN Reason Stop Dose Admin Acetaminophen 650 mg 10/12/19 09:44 10/14/19 01:10 Tylenol PO 650 mg Q4H PRN Administration Headache/Fever/Mild Pain (1-3) Enoxaparin Sodium 40 mg 10/13/19 09:00 10/15/19 08:07 Lovenox SC 40 mg 0900 CHARLY Administration Famotidine 20 mg 10/12/19 21:00 10/15/19 08:07 Pepcid PO 20 mg BID CHARLY Administration Glipizide 5 mg 10/14/19 07:30 10/15/19 08:07 Glucotrol PO 5 mg BID-AC CHARLY Administration Guaifenesin 600 mg 10/13/19 09:00 10/15/19 08:07 Mucinex PO 600 mg Q12HR CHARLY Administration Guaifenesin/Dextromethorphan 15 ml 10/12/19 09:44 10/15/19 12:43 Robitussin Dm PO 15 ml Q4H PRN Administration Cough Levofloxacin 500 mg/ Device 100 mls @ 100 mls/hr 10/12/19 13:00 10/15/19 12: 43 IVPB 100 mls 1300 CHARLY Administration Insulin Glargine 10 units/ 0.1 mls @ 0 mls/hr 10/13/19 21:00 10/15/19 08:12 Miscellaneous Medication SC 0.1 mls BID CHARLY Administration Insulin Human Lispro 0 units 10/13/19 09:10 10/15/19 12:43 Humalog SC 3 unit .AGGRESSIVE SLIDING PRN Administration Aggressive Correctional Scale Insulin Human Lispro 0 units 10/13/19 09:10 10/13/19 21:08 Humalog SC 3 units .BEDTIME SLIDING SC PRN Administration Bedtime Correctional Scale Metformin HCl 500 mg 10/14/19 08:00 10/15/19 08:07 Glucophage PO 500 mg BID-WM CHARLY Administration Nystatin 500,000 units 10/13/19 13:00 10/15/19 12:43 Mycostatin SSW 500,000 units QID CHARLY Administration Oseltamivir Phosphate 75 mg 10/12/19 21:00 10/15/19 08:07 Tamiflu PO 10/17/19 09:01 75 mg BID CHARLY Administration - Exam Eye: PERRL Heart: RRR, no murmur, no gallops Respiratory: CTAB, no wheezes, no rales, no ronchi, normal chest expansion, no tachypnea, normal percussion Gastrointestinal: soft, non-tender, non-distended, normal bowel sounds Extremities: no cyanosis, no edema Hosp A/P (1) DKA, type 2 Code(s): E11.10 - TYPE 2 DIABETES MELLITUS WITH KETOACIDOSIS WITHOUT COMA Status: Resolved Qualifiers: 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
--- NOTE | 2019-10-17 13:36 | DIS ---
DATE OF ADMISSION: 10/12/2019 DATE OF DISCHARGE: 10/15/2019 PRIMARY CARE PHYSICIAN: Dr. Beau Mosley. DISCHARGE DISPOSITION: Home. DISCHARGE DIAGNOSES: 1. Diabetic ketoacidosis. 2. Influenza A infection. DISCHARGE MEDICATIONS: These are the same and include with the addition of; 1. Tamiflu 75 mg p.o. twice daily. 2. Ozempic 0.25 mg every 7 days. 3. Phentermine 37.5 mg daily. 4. Metformin extended release 750 mg daily. CODE STATUS: Full code. ALLERGIES: NO KNOWN DRUG ALLERGIES. HOSPITAL COURSE: Mr. Lozano is a pleasant 39-year-old gentleman, who presented to the emergency room with not feeling well for days. He is feeling weak, has had abdominal discomfort. He was found to be in DKA and his influenza screen was positive. He was severely acidotic on admission. He was admitted to the ICU and treated with a DKA protocol. This resolved quickly and he was able to be transitioned out of the ICU into the medical floor. He was treated for the influenza A with Tamiflu. It was noted that he had increased LFTs. This was likely related to the flu virus. Hepatitis panel and HIV serologies were negative. By the time of discharge, the patient was tolerating oral medications well and basically had no complaints. He will be placed back on his home dose of medications as it is likely that the flu is what precipitated the DKA. He is to follow up with Dr. Mosley in 3 to 4 days hopefully on Thursday or Thursday. Job ID: [id number]
== END 2019-10-15 16:35 | disposition home or self-care (01) | DRG 871 ==
LOC: ERS 07:29 → ERHOLD 10:07 → IMCU/EMU 17:05 → T4-B 10-13 15:52
PROVIDERS: ADMIT Emergency Medicine; ATTEND Internal Medicine
DX: A41.89 Other specified sepsis (principal); E08.10 Diabetes mellitus due to underlying condition with ketoacidosis without coma; N17.9 Acute kidney failure, unspecified; E87.2 Acidosis; E87.1 Hypo-osmolality and hyponatremia; J10.1 Influenza due to other identified influenza virus with other respiratory manifestations; E86.0 Dehydration; E87.5 Hyperkalemia; E87.6 Hypokalemia; E83.39 Other disorders of phosphorus metabolism; E83.42 Hypomagnesemia; Z79.899 Other long term (current) drug therapy; Z79.84 Long term (current) use of oral hypoglycemic drugs
CPT/HCPCS: 36415; 36416; 71045; 80048; 80053; 80069; 80074; 81003; 81015; 82010; 82330; 82803; 82805; 83036; 83605; 83690; 83735; 84100; 85025; 85027; 85060; 87040; 87077; 87086; 87389; 96360; 96361; 96365; 96366; J1650; J1815; J1956; J3475; J3480; J3490; J7050; J7070